=== PATIENT | female | born 1970 | race Caucasian/White ===

== ENCOUNTER 2021-09-26 09:26 | Emergency (ER) | payer BC, SELFPAY ==
--- NOTE | ~2021-09-26 | XR_ITS ---
XR chest 1V portable DATE: 09/26/2021 10:09 INDICATION: Left chest pain. Body aches. Nausea and vomiting. Headache. TECHNIQUE: Portable AP chest on 09/26/2021 1006 hours COMPARISON: None FINDINGS: Probable old left first, second and third rib fractures. Osteopenia. Normal heart size. No hilar or mediastinal enlargement. No pulmonary infiltrate or consolidation, ple ural effusion or pulmonary vascular congestion or pneumothorax is detected. IMPRESSION: No active cardiopulmonary disease Probable old left upper rib fractures Reviewed, dictated and finalized at location A.
[2021-09-26 09:28] VITALS: BP 146/102; PULSE 112; RESP 18; TEMP 36.5; O2SAT 97
[2021-09-26 09:39] VITALS: PULSE 106; RESP 20; O2SAT 96
--- NOTE | 2021-09-26 09:44 | ECG_ITS ---
Measurements Intervals [place] Rate: 105 P: 37 [place]: 189 QRS: -12 QRSD: 105 T: 19 QT: 356 QTc: 471 Interpretive Statements SINUS TACHYCARDIA LOW QRS VOLTAGE IN PRECORDIAL LEADS ANTERIOR INFARCT, AGE INDETERMINATE MINIMAL Q WAVES- HIGH LATERAL LEADS BORDERLINE T WAVE ABNORMALITY- INFERIOR LEADS ABNORMAL ECG Electronically Signed On 09-26-2021 14:07:34 CDT by Ramakrishna Brown D.O.
--- NOTE | 2021-09-26 09:53 | ED.GENADULT ---
HPI - General Adult General Chief complaint: Unspecified Stated complaint: aponte/body aches/little heart pains Time Seen by Provider: 09/26/21 09:39 History of Present Illness HPI narrative: Patient is a 51-year-old female with history of migraine headaches here for evaluation of her usual migraine for the past 9 hours. Patient states that her migraine is diffuse in nature, is typical of previous migraine headaches, and feels like my head is going to explode . Her migraines are always associated with nausea and vomiting, and she states that she had about 6 episodes of vomiting nonbloody, nonbilious emesis today. She was unable to keep Ubrelvy down, which is her migraine medication. Reports a chest pain in her left anterior chest that she describes as a sharp stabbing sensation. Denies history of previous similar sensation chest pain. The pain does not radiate, and she was at rest when she developed the pain. Patient reports diffuse body aches and chills. Denies shortness of breath, cough, abdominal pain, leg swelling, fevers. She was exposed to COVID last week, and she is vaccinated. Related Data Allergies Allergy/AdvReac Type Severity Reaction Status Date / Time acetaminophen Allergy Unknown Verified 06/19/15 11:13 oxycodone Allergy Verified 09/26/21 09:53 Review of Systems Review of Systems: Gen: Reports chills and body aches Denies fevers Eyes: Denies eye pain or visual change ENT: Denies congestion Respiratory: Denies shortness of breath or cough CV: Reports chest pain. Denies chest pain or palpitations GI: Reports nausea and vomiting. Denies abdominal pain or diarrhea denies burning, urgency, frequency or hematuria Musculoskeletal: Denies back pain or muscle pain Neuro: Reports headache. Skin: Denies rash Except as documented, all other systems reviewed and negative Exam Narrative: APPEARANCE: Uncomfortable appearing. EYES: EOMI HEENT: Normocephalic, atraumatic, OMM RESPIRATORY: No respiratory distress Clear to auscultation bilaterally with no rhonchi wheezing or rales. CARDIOVASCULAR: Tachycardic. Regular rhythm without murmurs rubs or gallops. ABDOMINAL: Soft, nontender, nondistended, no rebound or guarding MUSCULOSKELETAl: No CVA tenderness. Moves all extremities. No clubbing, cyanosis or edema. NEURO: Awake and alert. Following commands, speech normal, no focal deficits SKIN: Warm, dry. No rashes lesions or abrasions PSYCHIATRIC: Normal affect/mood Course Vital Signs Vital signs: Vital Signs Temperature 97.7 F 09/26/21 09:28 Pulse Rate 112 H 09/26/21 09:28 Respiratory Rate 18 09/26/21 09:28 Blood Pressure 146/102 H 09/26/21 09:28 Pulse Oximetry 97 09/26/21 09:28 Oxygen Delivery Room Air 09/26/21 09:28 Temperature 97.7 F 09/26/21 09:28 Pulse Rate 100 09/26/21 14:51 Respiratory Rate 20 09/26/21 14:51 Blood Pressure 124/100 H 09/26/21 14:51 Pulse Oximetry 96 09/26/21 14:51 Oxygen Delivery Room Air 09/26/21 09:28 Medical Decision Making MDM Narrative Medical decision making narrative: 31-year-old female here for evaluation of her usual migraine headache in addition to some chest pain. Patient hypertensive and tachycardic, likely due to pain. Neurologic exam without evidence of meningismus, AMS, focal neurologic findings so doubt meningitis, encephalitis, stroke. Presentation not consistent with acute intracranial bleed to include SAH (lack of risk factors, headache history). No history of trauma so doubt ICH. Given history and physical temporal arteritis unlikely, as is acute angle closure glaucoma. Doubt carotid artery dissection given no focal neuro deficits, no neck trauma or recent neck strain. Patient with no signs of increased intracranial pressure or weight loss and history and physical suggest more benign headache so less likely mass effect in brain from tumor or abscess or idiopathic intracranial hypertension. Dimer negative, doubt PE. Work-up in the E
[2021-09-26 10:01] LABS: Basophils Absolute Auto 0.1 K/mm3 (0.0-0.1); Basophils Percent Auto 0.8 % (0.2-1.2); Eosinophils Percent Auto 0.1 % (0-4.4); Hemoglobin 13.3 g/dL (12.0-15.0); Immature Granulocyte Absolute 0.05 K/mm3 (0.00-0.031); Immature Granulocyte Percent A 0.5 % (0-0.5); Lymphocytes Absolute Auto 0.38 K/mm3 (0.9-3.2); Lymphocytes Percent Auto 3.8 % (18.3-44.2); Mean Corpuscular HGB Conc 33.3 g/dl (32-36); Mean Corpuscular Hemoglobin 29.2 pg (26-34); Mean Corpuscular Volume 87.9 fl (80-100); Mean Platelet Volume 9.4 fl (7.4-10.4); Monocytes Absolute Auto 1.2 K/mm3 (0.1-0.6); Neutrophils Absolute Auto 8.3 K/mm3 (1.3-6.7); Neutrophils Percent Auto 82.8 % (45.5-73.1); Platelet Count Result 422 k/mm3 (150-375); Red Blood Count 4.55 M/mm3 (4.2-5.4); Red Cell Distribution Width 12.1 % (11.5-14.5)
[2021-09-26] MEDS: diphenhydrAMINE HCl INJ 50 MG/ML VIAL 12.5 MG IV PUSH (10:06)
[2021-09-26] MEDS: SODIUM CHLORIDE 0.9% IV 1,000 ML 999 ML IV CONT (10:06)
[2021-09-26] MEDS: PROCHLORPERAZINE EDISYLATE 10 MG/2 ML VIAL IV PUSH (10:08)
[2021-09-26 10:10] LABS: Lipase 21 U/L (23-300)
[2021-09-26 10:11] LABS: Alanine Aminotransferase 18 U/L (6-35); Albumin Level 3.9 g/dL (3.5-5.1); Alkaline Phosphatase 90 U/L (38-126); Anion Gap 8 mmol/L (8-16); Aspartate Amino Transferase 26 U/L (14-36); Bilirubin,Total 0.2 mg/dL (0.2-1.3); Blood Urea Nitrogen 14 mg/dL (7-17); Calcium 8.2 mg/dL (8.4-10.2); Carbon Dioxide 22 mmol/L (22-30); Chloride 103 mmol/L (98-107); Estimated CRCL calculation 91 ml/min; Estimated Glomerular Filt Rate > 60; Glucose 128 mg/dL (65-110); Potassium 3.8 mmol/L (3.4-5.0); Sodium 133 mmol/L (137-145)
[2021-09-26 10:18] LABS: D Dimer 0.45 ug/mL (<0.48)
[2021-09-26 10:26] LABS: NT Pro B Type Natriuretic Pept 211 pg/mL (5-100); Troponin I < 0.012 ng/mL (0.000-0.034)
[2021-09-26 10:37] LABS: SARS-CoV-2 RNA PCR Positive
[2021-09-26 10:51] VITALS: BP 146/96; PULSE 110; RESP 21; O2SAT 96
[2021-09-26 13:01] LABS: Troponin I < 0.012 ng/mL (0.000-0.034)
[2021-09-26] MEDS: KETOROLAC 15 MG/ML VIAL (*BKC) IV PUSH (13:01)
[2021-09-26 13:06] VITALS: BP 141/96; PULSE 88; RESP 16; O2SAT 98
--- NOTE | 2021-09-26 13:59 | PC.NURSE ---
pt. daughter called for pt. updated. goldie's number listed in contacts
[2021-09-26 14:51] VITALS: BP 124/100; PULSE 100; RESP 20; O2SAT 96
== END 2021-09-26 14:53 | disposition home or self-care (01) ==
PROVIDERS: Physician Assistant; Emergency Provider Emergency Medicine; PCP Family Medicine
DX: U07.1 COVID-19 (principal)
CPT/HCPCS: 36415; 71045; 80053; 83690; 83880; 84484; 85025; 85380; 93005; 96361; 96374; 96375; 99284; C9803; J0780; J1200; J1885; J7030; U0003; U0005

== ENCOUNTER 2022-07-17 12:50 | Emergency (ER) | payer BC, SELFPAY ==
[2022-07-17] VITALS (21 sets, daily range): BP systolic 125–143; BP diastolic 90–94; PULSE 82–117; RESP 12–24; TEMP 36.5; O2SAT 94–100
--- NOTE | ~2022-07-17 | XR_ITS ---
XR chest 2V DATE: 07/17/2022 13:30 INDICATION: Shortness of breath, cough, cold symptoms. Chest pain with inspiration. TECHNIQUE: PA and lateral views COMPARISON: 09/26/2021 portable AP chest FINDINGS: Normal heart size. No hilar or mediastinal enlargement. Pectus excavatum. No pulmonary infiltrate or consolidation, pleural effusion or pulmonary vascular congestion or pneumo thorax is detected. Mild thoracic levoscoliosis. IMPRESSION: No active cardiopulmonary disease Reviewed, dictated and finalized at location B.
--- NOTE | 2022-07-17 12:54 | ECG_ITS ---
Measurements Intervals [place] Rate: 81 P: 55 [place]: 194 QRS: -13 QRSD: 101 T: 32 QT: 365 QTc: 425 Interpretive Statements SINUS RHYTHM LOW QRS VOLTAGE IN PRECORDIAL LEADS ANTEROSEPTAL INFARCT, AGE INDETERMINATE CONSIDER INFERIOR INFARCT, AGE INDETERMINATE ABNORMAL ECG COMPARED TO ECG 09/26/2021 09:39:28 SINUS RHYTHM NOW PRESENT Electronically Signed On 07-17-2022 16:54:07 CDT by Ramakrishna Brown D.O.
[2022-07-17 13:15] LABS: Basophils Absolute Auto 0.1 K/mm3 (0.0-0.1); Basophils Percent Auto 1.4 % (0.2-1.2); Eosinophils Absolute Auto 0.9 K/mm3 (0-0.3); Eosinophils Percent Auto 12.6 % (0-4.4); Hematocrit 38.7 % (37.0-47.0); Hemoglobin 12.5 g/dL (12.0-15.0); Immature Granulocyte Absolute 0.02 K/mm3 (0.00-0.031); Immature Granulocyte Percent A 0.3 % (0-0.5); Lymphocytes Absolute Auto 2.14 K/mm3 (0.9-3.2); Lymphocytes Percent Auto 29.2 % (18.3-44.2); Mean Corpuscular HGB Conc 32.3 g/dl (32-36); Mean Corpuscular Hemoglobin 29.1 pg (26-34); Mean Platelet Volume 9.7 fl (7.4-10.4); Monocytes Absolute Auto 0.7 K/mm3 (0.1-0.6); Monocytes Percent Auto 9.6 % (2.6-8.5); Neutrophils Absolute Auto 3.4 K/mm3 (1.3-6.7); Neutrophils Percent Auto 46.9 % (45.5-73.1); Platelet Count Result 472 k/mm3 (150-375); Red Cell Distribution Width 13.1 % (11.5-14.5); White Blood Count 7.3 K/mm3 (4.5-10.0)
[2022-07-17 13:25] LABS: Alanine Aminotransferase 22 U/L (6-35); Albumin Level 4.4 g/dL (3.5-5.1); Alkaline Phosphatase 86 U/L (38-126); Anion Gap 7 mmol/L (8-16); Aspartate Amino Transferase 22 U/L (14-36); Bilirubin,Total 0.5 mg/dL (0.2-1.3); Blood Urea Nitrogen 14 mg/dL (7-17); Calcium 9.2 mg/dL (8.4-10.2); Carbon Dioxide 22 mmol/L (22-30); Chloride 109 mmol/L (98-107); Estimated CRCL calculation 71 ml/min; Estimated Glomerular Filt Rate > 60; Glucose 101 mg/dL (65-110); Sodium 138 mmol/L (137-145)
[2022-07-17 13:37] LABS: NT Pro B Type Natriuretic Pept 33 pg/mL (19.9-100); Troponin I < 0.012 ng/mL (0.000-0.034)
[2022-07-17 13:50] LABS: Influenza A QL RT-PCR Negative (Negative); Influenza B QL RT-PCR Negative (Negative); RSV RNA, RT-PCR Negative (Negative); SARS-CoV-2 RNA PCR Negative
[2022-07-17] MEDS: IPRATROPIUM BR 0.02% INH SOLN 0.5 MG/2.5 ML VIAL 1.5 MG INHALATION (14:52)
[2022-07-17] MEDS: ALBUTEROL SULFATE NEB 2.5 MG/3 ML INH 15 MG INHALATION (14:52)
[2022-07-17] MEDS: predniSONE 40 MG, predniSONE 10 MG 50 MG PO (14:58)
--- NOTE | 2022-07-17 16:32 | ED.SOB ---
HPI - SOB/Dyspnea General Chief Complaint: Shortness of Breath/Dyspnea Stated Complaint: SOB Time Seen by Provider: 07/17/22 14:21 History of Present Illness HPI Narrative: Patient is a 52-year-old female who presents to the ER with shortness of breath. Ongoing for 3 weeks. Associate with cough. No fevers or chills. No chest pain or chest pressure. No history of COPD but she did quit smoking 9 months ago. Related Data Allergies Allergy/AdvReac Type Severity Reaction Status Date / Time acetaminophen Allergy Unknown Verified 06/19/15 11:13 oxycodone Allergy Verified 09/26/21 09:53 Review of Systems Review of Systems: All systems reviewed & are unremarkable except as noted in HPI and below Constitutional: Constitutional: Denies chills, Denies fatigue and Denies fever(s) ENT: Denies nasal congestion and Denies sore throat Cardiovascular: Cardiovascular: Denies chest pain, Denies rapid heart rate and Denies radiating jaw, neck or arm pain Respiratory: Respiratory: Reports cough, Reports dyspnea and Reports wheezing Gastrointestinal: Gastrointestinal: Denies abdominal pain, Denies nausea and Denies vomiting Musculoskeletal: Musculoskeletal: Denies myalgias PMFSH Past Medical History Medical History (Updated 07/18/22 @ 00:00 by Background Daemon) Hypertension Hypothyroidism Migraine headache Social History Social History (Updated 07/17/22 @ 22:07 by Shawn Garcia MD) Smoking status: Former smoker Smoking end date: 09/28/21 Exam Narrative: GENERAL: Well-appearing, well-nourished, and in no acute distress. HEAD: Normocephalic, atraumatic. ENT: Mucous membranes moist. NECK: Supple. CHEST: Coarse wheezing/rales throughout. No respiratory distress. HEART: Tachycardic and regular. Normal peripheral pulses. ABDOMEN: Soft, nontender, nondistended. EXTREMITIES: Normal range of motion. No edema. SKIN: Warm, dry, no rash. NEURO: Alert and oriented x3. PSYCH: Normal mood and affect. Course Course Emergency Course: Patient resting comfortably. Feels markedly improved after hour-long treatment. Still with some wheezing. Feels comfortable with discharge with inhaler and oral steroids. Vital Signs Vital signs: Vital Signs Temperature 97.7 F 07/17/22 12:51 Pulse Rate 103 H 07/17/22 12:51 Respiratory Rate 24 H 07/17/22 12:51 Blood Pressure 143/94 H 07/17/22 12:51 Pulse Oximetry 98 07/17/22 12:51 Oxygen Delivery Room Air 07/17/22 12:51 Temperature 97.7 F 07/17/22 12:51 Pulse Rate 110 H 07/17/22 18:32 Respiratory Rate 16 07/17/22 18:32 Blood Pressure 125/91 H 07/17/22 18:32 Pulse Oximetry 98 07/17/22 18:32 Oxygen Delivery Room Air 07/17/22 17:13 MDM - SOB/Dyspnea Lab Data 07/17/22 13:06 07/17/22 13:06 Labs: Lab Results 07/17/22 07/17/22 07/17/22 Range/Units 13:06 13:06 13:06 WBC 7.3 (4.5-10.0) K/mm3 RBC 4.30 (4.2-5.4) M/mm3 Hgb 12.5 (12.0-15.0) g/dL Hct 38.7 (37.0-47.0) % MCV 90.0 (80-100) fl MCH 29.1 (26-34) pg MCHC 32.3 (32-36) g/dl RDW 13.1 (11.5-14.5) % Plt Count 472 H (150-375) k/mm3 MPV 9.7 (7.4-10.4) fl Immature Gran % (Auto) 0.3 (0-0.5) % Neut % (Auto) 46.9 (45.5-73.1) % Lymph % (Auto) 29.2 (18.3-44.2) % Phillips % (Auto) 9.6 H (2.6-8.5) % Eos % (Auto) 12.6 H (0-4.4) % Baso % (Auto) 1.4 H (0.2-1.2) % Lymph # (Auto) 2.14 (0.9-3.2) K/mm3 Phillips # (Auto) 0.7 H (0.1-0.6) K/mm3 Eos # (Auto) 0.9 H (0-0.3) K/mm3 Baso # (Auto) 0.1 (0.0-0.1) K/mm3 Abs Immat Gran (auto) 0.02 (0.00-0.031) K/mm3 Absolute Neuts (auto) 3.4 (1.3-6.7) K/mm3 Absolute Nucleated RBC 0.0 (0.0-0.012) K/mm3 Nucleated RBC % 0.0 (0.0-0.2) % Sodium 138 (137-145) mmol/L Potassium 4.0 (3.4-5.0) mmol/L Chloride 109 H (98-107) mmol/L Carbon Dioxide 22 (22-30) mmol/L Anion Gap 7 L (8-16) mmol/L BUN 14 (7-17
--- NOTE | 2022-07-17 17:52 | PC.NURSE ---
Pt. O2 saturations remained above 94% while ambulating. ERP notified.
== END 2022-07-17 18:44 | disposition home or self-care (01) ==
PROVIDERS: Emergency Medicine; Emergency Provider Emergency Medicine; PCP Family Medicine
DX: J40 Bronchitis, not specified as acute or chronic (principal); Z20.822 Contact with and (suspected) exposure to COVID-19; I10 Essential (primary) hypertension; E03.9 Hypothyroidism, unspecified
CPT/HCPCS: 36415; 71046; 80053; 83880; 84484; 85025; 87637; 93005; 94640; 99284; J7512